=== PATIENT | male | born 1955 | race Caucasian/White ===

== ENCOUNTER 2020-05-10 20:14 | Emergency (ER) | payer MEDICARE, OTHER ==
[2020-05-10 21:51] LABS: HEMOGLOBIN 10.2 gm/dl (14.0-17.5); RED BLOOD COUNT 4.63 M/UL (4.20-5.50); WHITE BLOOD COUNT 8.6 K/UL (4.5-11.0)
[2020-05-10 21:58] LABS: BUN/CREATININE RATIO 17 (0-10)
[2020-05-11] MEDS ORDERED: OMNICEF 300 MG300 MG PO (03:19)
[2020-05-11] MEDS ORDERED: ZITHROMAX250 MG PO (03:19)
== END 2020-05-11 03:31 | disposition home or self-care (01) ==
LOC: ER1 20:14
PROVIDERS: Emergency Medicine
DX: J44.0 Chronic obstructive pulmonary disease with (acute) lower respiratory infection (principal); J18.9 Pneumonia, unspecified organism; Z20.822 Contact with and (suspected) exposure to COVID-19; E11.9 Type 2 diabetes mellitus without complications; R74.02 Elevation of levels of lactic acid dehydrogenase [LDH]
CPT/HCPCS: 0240U; 71045; 80053; 81001; 82550; 82553; 83605; 83690; 83735; 83874; 83880; 84439; 84443; 84484; 85025; 85379; 87040; 93005; 94664; 94760; 96365; 99285; J0696; J7030; J7120; Q0177

== ENCOUNTER 2020-07-23 15:20 | Observation (INO) | payer MEDICARE, OTHER ==
[~2020-07-23] VITALS: Ht 180.3 cm; Wt 109.8 kg
[~2020-07-23 15:20] MED LIST: OMNICEF 300 MG300 MG PO; ZITHROMAX250 MG PO
[2020-07-23 16:20] LABS: RED BLOOD COUNT 4.24 M/UL (4.20-5.50); WHITE BLOOD COUNT 6.9 K/UL (4.5-11.0)
[2020-07-23 16:42] LABS: BUN/CREATININE RATIO 13 (0-10)
[2020-07-23] MEDS ORDERED: DEXILANT60 MG PO (23:21)
[2020-07-23] MEDS ORDERED: GLIPIZIDE ER5 MG PO (23:23)
[2020-07-23] MEDS ORDERED: ASPIRIN EC81 MG PO (23:23)
[2020-07-23] MEDS ORDERED: RANOLAZINE ER1000 MG PO (23:26)
[2020-07-24 04:15] LABS: RED BLOOD COUNT 4.25 M/UL (4.20-5.50); WHITE BLOOD COUNT 7.4 K/UL (4.5-11.0)
[2020-07-24 04:30] LABS: BUN/CREATININE RATIO 15 (0-10)
== END 2020-07-24 17:18 | disposition left against medical advice (07) ==
LOC: ER1 15:20 → CDU 18:05 → MED SURG 4 18:05
PROVIDERS: Emergency Medicine; ADMIT Internal Medicine
DX: R07.9 Chest pain, unspecified (principal); J44.9 Chronic obstructive pulmonary disease, unspecified; I25.10 Atherosclerotic heart disease of native coronary artery without angina pectoris; I10 Essential (primary) hypertension; E11.9 Type 2 diabetes mellitus without complications; E66.01 Morbid (severe) obesity due to excess calories; R10.13 Epigastric pain; R10.816 Epigastric abdominal tenderness; Z88.5 Allergy status to narcotic agent; Z79.82 Long term (current) use of aspirin; Z79.84 Long term (current) use of oral hypoglycemic drugs; Z20.822 Contact with and (suspected) exposure to COVID-19; R91.8 Other nonspecific abnormal finding of lung field; I45.10 Unspecified right bundle-branch block; E78.5 Hyperlipidemia, unspecified; Z87.891 Personal history of nicotine dependence; R60.0 Localized edema; Z53.29 Procedure and treatment not carried out because of patient's decision for other reasons; D50.9 Iron deficiency anemia, unspecified; Z95.5 Presence of coronary angioplasty implant and graft; Z79.02 Long term (current) use of antithrombotics/antiplatelets
CPT/HCPCS: 36415; 71045; 80048; 80053; 80061; 82550; 82553; 82728; 82962; 83540; 83550; 83690; 83735; 83874; 83880; 84100; 84439; 84443; 84484; 85025; 85610; 85730; 86140; 93005; 96372; 99285; G0378; J1650; U0002

== ENCOUNTER 2020-08-13 12:55 | Observation (INO) | payer MEDICARE, OTHER ==
[~2020-08-13] VITALS: Ht 180.3 cm; Wt 108.9 kg
[~2020-08-13 12:55] MED LIST changes: +ASPIRIN EC81 MG PO; +DEXILANT60 MG PO; +GLIPIZIDE ER5 MG PO; +RANOLAZINE ER1000 MG PO
[2020-08-13 13:38] LABS: HEMOGLOBIN 10.2 gm/dl (14.0-17.5); RED BLOOD COUNT 4.73 M/UL (4.20-5.50); WHITE BLOOD COUNT 9.7 K/UL (4.5-11.0)
[2020-08-13 14:02] LABS: BUN/CREATININE RATIO 13 (0-10)
[2020-08-13] MEDS ORDERED: B-121000 MCG PO (17:38)
[2020-08-13] MEDS ORDERED: FUROSEMIDE20 MG PO (17:41)
[2020-08-13] MEDS ORDERED: KLOR-CON 1010 MEQ PO (17:42)
[2020-08-13] MEDS ORDERED: METFORMIN HCL1000 MG PO (23:22)
[2020-08-13] MEDS ORDERED: MECLIZINE HCL25 MG PO (23:22)
[2020-08-13] MEDS ORDERED: ATORVASTATIN CA40 MG PO (23:24)
[2020-08-13] MEDS ORDERED: CARVEDILOL6.25 MG PO (23:24)
[2020-08-13] MEDS ORDERED: DULOXETINE HCL60 MG PO (23:25)
[2020-08-13] MEDS ORDERED: CLOPIDOGREL75 MG PO (23:26)
[2020-08-13] MEDS ORDERED: ISOSORBIDE MONO60 MG PO (23:26)
[2020-08-13] MEDS ORDERED: PROAIR HFA8.5 GM INH (23:28)
[2020-08-14 05:00] LABS: HEMOGLOBIN 8.8 gm/dl (14.0-17.5); WHITE BLOOD COUNT 8.6 K/UL (4.5-11.0)
[2020-08-14 05:05] LABS: RED BLOOD COUNT 4.11 M/UL (4.20-5.50)
[2020-08-14 05:22] LABS: BUN/CREATININE RATIO 15 (0-10)
[2020-08-14] MEDS ORDERED: FLAGYL500 MG PO (09:17)
[2020-08-14] MEDS ORDERED: BACTRIM DS TAB1 EACH PO (09:17)
[2020-08-14] MEDS ORDERED: OXYCODON-ACETA1 EACH PO (09:21)
[2020-08-14] MEDS ORDERED: HYDROCODON-ACE1 EACH PO (09:31)
[2020-08-14] MEDS ORDERED: PERCOCET 5/325 T1 EA PO (09:37)
== END 2020-08-14 14:08 | disposition home or self-care (01) ==
LOC: ER1 12:55 → MED SURG 4 16:16 → CDU 16:16 → MED SURG 4 16:16
PROVIDERS: Emergency Medicine; Physician Assistant Medical; ADMIT Internal Medicine
DX: K57.32 Diverticulitis of large intestine without perforation or abscess without bleeding (principal); D50.9 Iron deficiency anemia, unspecified; I25.10 Atherosclerotic heart disease of native coronary artery without angina pectoris; Z95.5 Presence of coronary angioplasty implant and graft; I45.10 Unspecified right bundle-branch block; E11.9 Type 2 diabetes mellitus without complications; I10 Essential (primary) hypertension; E66.9 Obesity, unspecified; Z88.5 Allergy status to narcotic agent; Z79.82 Long term (current) use of aspirin; Z79.01 Long term (current) use of anticoagulants; Z79.84 Long term (current) use of oral hypoglycemic drugs; Z87.891 Personal history of nicotine dependence; J44.9 Chronic obstructive pulmonary disease, unspecified; R74.02 Elevation of levels of lactic acid dehydrogenase [LDH]; Z20.822 Contact with and (suspected) exposure to COVID-19
CPT/HCPCS: 96375; 36415; 80048; 80053; 81001; 82550; 82553; 82728; 82962; 83540; 83550; 83605; 83690; 83735; 83874; 84484; 85025; 85027; 87040; 93005; 96374; 96376; 99285; G0378; J2270; J2405; J2543; J7030; Q9967; U0002

== ENCOUNTER → 2021-09-07 | Outpatient (CLI) | payer MEDICARE, OTHER ==
[~2021-09-07] MED LIST changes: +ATORVASTATIN CA40 MG PO; +B-121000 MCG PO; +BACTRIM DS TAB1 EACH PO; +CARVEDILOL6.25 MG PO; +CLOPIDOGREL75 MG PO; +DULOXETINE HCL60 MG PO; +FLAGYL500 MG PO; +FUROSEMIDE20 MG PO; +HYDROCODON-ACE1 EACH PO; +ISOSORBIDE MONO60 MG PO; +KLOR-CON 1010 MEQ PO; +MECLIZINE HCL25 MG PO; +METFORMIN HCL1000 MG PO; +OXYCODON-ACETA1 EACH PO; +PERCOCET 5/325 T1 EA PO; +PROAIR HFA8.5 GM INH
== END ==
LOC: US 08-31 09:30
DX: B18.2 Chronic viral hepatitis C (principal); K76.0 Fatty (change of) liver, not elsewhere classified
CPT/HCPCS: 76700

== ENCOUNTER → 2021-10-16 | Outpatient (CLI) | payer MEDICARE, OTHER | LOC: NM 09:49 | DX: R07.9 Chest pain, unspecified (principal); I25.119 Atherosclerotic heart disease of native coronary artery with unspecified angina pectoris; I10 Essential (primary) hypertension; R55 Syncope and collapse; R10.9 Unspecified abdominal pain | CPT/HCPCS: 78452; 93017; A9502; J2785 ==

== ENCOUNTER 2021-10-23 11:21 | Emergency (ER) | payer MEDICARE, OTHER ==
[2021-10-23 12:33] LABS: HEMOGLOBIN 9.4 gm/dl (14.0-17.5); RED BLOOD COUNT 4.41 M/UL (4.20-5.50); WHITE BLOOD COUNT 7.8 K/UL (4.5-11.0)
[2021-10-23 13:04] LABS: BUN/CREATININE RATIO 11 (0-10)
[2021-10-23] MEDS ORDERED: VOLTAREN ARTHRI20 GM TP (15:44)
[2021-10-23] MEDS ORDERED: NORFLEX 100 MG100 MG PO (15:44)
== END 2021-10-23 16:00 | disposition home or self-care (01) ==
LOC: ER1 11:21
DX: S39.012A Strain of muscle, fascia and tendon of lower back, initial encounter (principal); E11.9 Type 2 diabetes mellitus without complications; J44.9 Chronic obstructive pulmonary disease, unspecified; I51.9 Heart disease, unspecified; Z95.5 Presence of coronary angioplasty implant and graft; W19.XXXA Unspecified fall, initial encounter; Y92.009 Unspecified place in unspecified non-institutional (private) residence as the place of occurrence of the external cause
CPT/HCPCS: 70450; 71045; 72131; 72192; 80053; 82550; 82553; 84484; 85025; 93005; 96374; 96375; 99284; J2270; J2765